=== PATIENT | female | born 1995 | race Two or more races ===

== ENCOUNTER 2022-05-25 10:50 | Observation (INO) | payer MEDICAID ==
[~2022-05-25] VITALS: Ht 154.9 cm; Wt 72.1 kg
[2022-05-25] MEDS ORDERED: TERBUTALINE SULFATE 1 MG/ML 1ML VIAL SC ONE (12:00)
== END 2022-05-25 13:10 | disposition home or self-care (01) ==
LOC: UNDOADMOB 10:50 → LDRP 10:50 → UNDODISOB 13:10
PROVIDERS: ADMIT Obstetrics & Gynecology; ATTEND Obstetrics & Gynecology
DX: O60.02 Preterm labor without delivery, second trimester (principal); Z3A.27 27 weeks gestation of pregnancy
CPT/HCPCS: 59025; 81002; 96372; G0378; J3105

== ENCOUNTER 2022-05-31 18:14 | Observation (INO) | payer MEDICAID ==
[~2022-05-31] VITALS: Ht 154.9 cm; Wt 72.1 kg
== END 2022-05-31 19:07 | disposition home or self-care (01) ==
LOC: LDRP 18:14
PROVIDERS: ADMIT Obstetrics & Gynecology; ATTEND Obstetrics & Gynecology
DX: O26.893 Other specified pregnancy related conditions, third trimester (principal); R10.9 Unspecified abdominal pain; Z3A.28 28 weeks gestation of pregnancy
CPT/HCPCS: 59025; 81002; G0378

== ENCOUNTER 2022-06-20 11:30 | Observation (INO) | payer MEDICAID ==
[~2022-06-20] VITALS: Ht 154.9 cm; Wt 76.7 kg
[2022-06-20 12:18] LABS: Basophils # (auto) 0.1 10 ^3/uL (0-0.2); Basophils % (auto) 0.6 % (0.0-2.0); Eosinophils # (auto) 0.2 10 ^3/uL (0-0.8); Eosinophils % (auto) 2.1 % (0.0-7.0); Hematocrit 34.3 % (36.0-46.0); Lymphocytes # (auto) 1.4 10 ^3/uL (0.4-5.4); Lymphocytes % (auto) 15.7 % (10.0-50.0); Mean Corpuscular Hemoglobin 27.7 pg (28.0-32.0); Mean Corpuscular Hgb Conc. 34.9 g/dL (32.0-36.0); Mean Corpuscular Volume 79.5 fL (80.0-100.0); Monocytes # (auto) 0.6 10 ^3/uL (0-1.3); Monocytes % (auto) 6.7 % (0.0-12.0); Neutrophils # (auto) 6.8 10 ^3/uL (1.6-8.6); Neutrophils % (auto) 74.9 % (37.0-80.0); Nucleated Red Blood Cells % 0.3 %; Red Blood Cells 4.31 10^6/uL (4.0-5.20); Red Cell Distribution Width 13.6 % (11.8-14.3); White Blood Cell 9.1 10^3/uL (4.4-10.8)
[2022-06-20 12:40] LABS: Urine Bacteria NONE SEEN /hpf (None Seen); Urine Blood Negative /uL (Negative); Urine Specific Gravity 1.015 (1.001-1.035); Urine WBC 5 /hpf (0 - 5)
[2022-06-20 12:42] LABS: Albumin 2.4 g/dL (3.4-5.0); Calcium 8.4 mg/dL (8.5-10.1); Potassium 3.8 mmol/L (3.5-5.1)
[2022-06-20 12:48] LABS: Bilirubin, Total 0.2 mg/dL (0.2-1.0); Total Protein 6.8 g/dL (6.4-8.2); Uric Acid 3.1 mg/dL (2.6-6.0)
[2022-06-20 12:57] LABS: Protein, Urine 18.3 mg/dL (0.0-11.9)
[2022-06-20 13:13] LABS: INR 0.87 (0.9-1.15); Partial Thromboplastin Time 26.2 sec (24.6-33.4)
[2022-06-20] MEDS ORDERED: NIF10C PO (13:42)
== END 2022-06-20 14:13 | disposition home or self-care (01) ==
LOC: UNDOADMOB 11:30 → LDRP 11:30 → UNDODISOB 14:13
PROVIDERS: ADMIT Obstetrics & Gynecology; ATTEND Obstetrics & Gynecology
DX: O13.3 Gestational [pregnancy-induced] hypertension without significant proteinuria, third trimester (principal); Z3A.31 31 weeks gestation of pregnancy
CPT/HCPCS: 59025; 80053; 81001; 81002; 82570; 84156; 84550; 85379; 85610; 85730; 94760; G0378

== ENCOUNTER 2022-06-22 13:31 | Observation (INO) | payer MEDICAID ==
[~2022-06-22 13:31] MED LIST: NIF10C PO
== END 2022-06-22 17:25 | disposition home or self-care (01) ==
LOC: UNDOADMOB 13:31 → LDRP 13:31
PROVIDERS: ADMIT Obstetrics & Gynecology; ATTEND Obstetrics & Gynecology
DX: O14.93 Unspecified pre-eclampsia, third trimester (principal); O26.893 Other specified pregnancy related conditions, third trimester; R51.9 Headache, unspecified; Z3A.31 31 weeks gestation of pregnancy
CPT/HCPCS: 59025; 76818; 81002; 94760; G0378

== ENCOUNTER 2022-06-27 09:42 | Observation (INO) | payer MEDICAID ==
[2022-06-27 13:11] LABS: Protein, Urine 13.2 mg/dL (0.0-11.9)
[2022-06-27 16:16] LABS: 24 Hr. Total Protein, Urine 277.2 mg/24 Hr (<149.1)
== END 2022-06-27 12:52 | disposition home or self-care (01) ==
LOC: UNDOADMOB 10:25 → LDRP 10:25
PROVIDERS: ADMIT Obstetrics & Gynecology; ATTEND Obstetrics & Gynecology
DX: O13.3 Gestational [pregnancy-induced] hypertension without significant proteinuria, third trimester (principal); O36.8330 Maternal care for abnormalities of the fetal heart rate or rhythm, third trimester, not applicable or unspecified; Z3A.32 32 weeks gestation of pregnancy
CPT/HCPCS: 59025; 76818; 81002; 84156; 94760; G0378

== ENCOUNTER 2022-06-29 21:30 | Observation (INO) | payer MEDICAID ==
[~2022-06-29] VITALS: Ht 154.9 cm; Wt 59.9 kg
[2022-06-29] MEDS ORDERED: TERBUTALINE SULFATE 1 MG/ML 1ML VIAL SC SCH (22:15)
[2022-06-29] MEDS ORDERED: BETAMETHASONE ACET (30mg/5ml) 5ml Vial 6mg/ml IM ONE (22:15)
[2022-06-30] MEDS ORDERED: PREN-96 PO (22:28)
[2022-06-30] MEDS ORDERED: NIF10C PO (22:49)
== END 2022-06-29 23:46 | disposition home or self-care (01) ==
LOC: LDRP 21:30
PROVIDERS: ADMIT Obstetrics & Gynecology; ATTEND Obstetrics & Gynecology
DX: O60.03 Preterm labor without delivery, third trimester (principal); Z3A.32 32 weeks gestation of pregnancy
CPT/HCPCS: 59025; 76817; 76818; 81002; 94760; 96372; G0378; J0702; J3105

== ENCOUNTER 2022-06-30 21:46 | Observation (INO) | payer MEDICAID ==
[~2022-06-30] VITALS: Ht 154.9 cm; Wt 72.6 kg
[2022-06-30] MEDS ORDERED: BETAMETHASONE ACET (30mg/5ml) 5ml Vial 6mg/ml IM ONE (22:15)
[2022-06-30] MEDS ORDERED: PREN-96 PO (22:28)
[2022-06-30] MEDS ORDERED: NIF10C PO (22:49)
[2022-06-30 23:13] LABS: Basophils # (auto) 0 10 ^3/uL (0-0.2); Basophils % (auto) 0.3 % (0.0-2.0); Eosinophils # (auto) 0 10 ^3/uL (0-0.8); Eosinophils % (auto) 0.1 % (0.0-7.0); Hematocrit 34.6 % (36.0-46.0); Hemoglobin 11.4 g/dL (12.2-16.2); Lymphocytes # (auto) 1.3 10 ^3/uL (0.4-5.4); Lymphocytes % (auto) 11.5 % (10.0-50.0); Mean Corpuscular Hemoglobin 27.3 pg (28.0-32.0); Mean Corpuscular Hgb Conc. 33.1 g/dL (32.0-36.0); Mean Corpuscular Volume 82.6 fL (80.0-100.0); Monocytes # (auto) 0.9 10 ^3/uL (0-1.3); Monocytes % (auto) 8.1 % (0.0-12.0); Nucleated Red Blood Cells % 0.1 %; Red Blood Cells 4.19 10^6/uL (4.0-5.20); Red Cell Distribution Width 13.8 % (11.8-14.3); White Blood Cell 11.2 10^3/uL (4.4-10.8)
[2022-06-30 23:19] LABS: Urine Bacteria FEW /hpf (None Seen); Urine Blood Negative /uL (Negative); Urine Specific Gravity 1.008 (1.001-1.035); Urine WBC 1 /hpf (0 - 5)
[2022-06-30 23:29] LABS: Albumin 2.4 g/dL (3.4-5.0); Calcium 8.6 mg/dL (8.5-10.1); Potassium 3.8 mmol/L (3.5-5.1)
[2022-06-30 23:30] LABS: INR 0.88 (0.9-1.15); Partial Thromboplastin Time 25.1 sec (24.6-33.4)
[2022-06-30 23:32] LABS: Protein, Urine 22.5 mg/dL (0.0-11.9)
[2022-06-30 23:34] LABS: BUN/Creatinine Ratio 17.8 (10.0-20.0); Bilirubin, Total 0.1 mg/dL (0.2-1.0); Total Protein 6.7 g/dL (6.4-8.2)
== END 2022-07-01 00:03 | disposition home or self-care (01) ==
LOC: LDRP 21:46
PROVIDERS: ADMIT Obstetrics & Gynecology; ATTEND Obstetrics & Gynecology
DX: O60.03 Preterm labor without delivery, third trimester (principal); Z3A.32 32 weeks gestation of pregnancy; Z79.899 Other long term (current) drug therapy
CPT/HCPCS: 36415; 59025; 80053; 81001; 81002; 82570; 84156; 84550; 85025; 85610; 85730; 94760; 96372; G0378

== ENCOUNTER 2022-07-02 09:07 | Observation (INO) | payer MEDICAID ==
[~2022-07-02 09:07] MED LIST changes: +PREN-96 PO
== END 2022-07-02 11:48 | disposition home or self-care (01) ==
LOC: LDRP 09:07
PROVIDERS: ADMIT Obstetrics & Gynecology; ATTEND Obstetrics & Gynecology
DX: O60.03 Preterm labor without delivery, third trimester (principal); O13.3 Gestational [pregnancy-induced] hypertension without significant proteinuria, third trimester; Z3A.32 32 weeks gestation of pregnancy; Z87.891 Personal history of nicotine dependence
CPT/HCPCS: 59025; 76818; 81002; 94760; G0378

== ENCOUNTER 2022-07-05 08:17 | Observation (INO) | payer MEDICAID ==
[2022-07-05] MEDS ORDERED: ACETAMINOPHEN 325 MG TAB PO STA (15:14)
[2022-07-05 16:52] LABS: Basophils # (auto) 0 10 ^3/uL (0-0.2); Basophils % (auto) 0.2 % (0.0-2.0); Eosinophils # (auto) 0.1 10 ^3/uL (0-0.8); Hematocrit 37.4 % (36.0-46.0); Hemoglobin 12.2 g/dL (12.2-16.2); Lymphocytes # (auto) 1.8 10 ^3/uL (0.4-5.4); Lymphocytes % (auto) 16.9 % (10.0-50.0); Mean Corpuscular Hemoglobin 27.3 pg (28.0-32.0); Mean Corpuscular Hgb Conc. 32.7 g/dL (32.0-36.0); Mean Corpuscular Volume 83.5 fL (80.0-100.0); Monocytes # (auto) 0.7 10 ^3/uL (0-1.3); Neutrophils % (auto) 74.9 % (37.0-80.0); Nucleated Red Blood Cells % 0.3 %; Red Blood Cells 4.48 10^6/uL (4.0-5.20); Red Cell Distribution Width 13.9 % (11.8-14.3); White Blood Cell 10.6 10^3/uL (4.4-10.8)
[2022-07-05 16:59] LABS: Urine Bacteria FEW /hpf (None Seen); Urine Blood Negative /uL (Negative); Urine Hyaline Cast FEW /lpf (0 - 2); Urine Specific Gravity 1.004 (1.001-1.035); Urine WBC <1 /hpf (0 - 5)
[2022-07-05 17:11] LABS: INR 0.86 (0.9-1.15); Partial Thromboplastin Time 25.9 sec (24.6-33.4)
[2022-07-05 17:22] LABS: Albumin 2.3 g/dL (3.4-5.0); Calcium 9.2 mg/dL (8.5-10.1); Potassium 3.8 mmol/L (3.5-5.1)
[2022-07-05 17:23] LABS: Protein, Urine 7.6 mg/dL (0.0-11.9)
[2022-07-05 17:27] LABS: Bilirubin, Total 0.1 mg/dL (0.2-1.0); Total Protein 6.7 g/dL (6.4-8.2)
[2022-07-05] MEDS ORDERED: LABE200T6 PO (18:02)
== END 2022-07-05 18:34 | disposition home or self-care (01) ==
LOC: LDRP 13:14 → UNDOADMOB 13:14 → LDRP 13:53
PROVIDERS: ADMIT Obstetrics & Gynecology; ATTEND Obstetrics & Gynecology
DX: O14.93 Unspecified pre-eclampsia, third trimester (principal); O60.03 Preterm labor without delivery, third trimester; O13.3 Gestational [pregnancy-induced] hypertension without significant proteinuria, third trimester; O26.893 Other specified pregnancy related conditions, third trimester; R51.9 Headache, unspecified; Z87.891 Personal history of nicotine dependence
CPT/HCPCS: 36415; 59025; 76818; 80053; 81001; 81002; 82570; 84156; 84550; 85025; 85379; 85610; 85730; G0378

== ENCOUNTER 2022-07-07 08:45 | Observation (INO) | payer MEDICAID ==
[~2022-07-07 08:45] MED LIST changes: +LABE200T6 PO; -NIF10C PO
== END 2022-07-07 10:43 | disposition home or self-care (01) ==
LOC: UNDOADMOB 08:45 → LDRP 08:45
PROVIDERS: ADMIT Obstetrics & Gynecology; ATTEND Obstetrics & Gynecology
DX: O13.3 Gestational [pregnancy-induced] hypertension without significant proteinuria, third trimester (principal); O60.03 Preterm labor without delivery, third trimester; Z3A.33 33 weeks gestation of pregnancy
CPT/HCPCS: 59025; 76817; 81002; 94760; G0378

== ENCOUNTER 2022-07-08 08:18 | Observation (INO) | payer MEDICAID ==
[2022-07-11 09:38] LABS: Urine Bacteria NONE SEEN /hpf (None Seen); Urine Blood Negative /uL (Negative); Urine Specific Gravity 1.001 (1.001-1.035); Urine WBC <1 /hpf (0 - 5)
[2022-07-11 12:44] LABS: Protein, Urine < 5 mg/dL (0.0-11.9)
[2022-07-11 13:27] LABS: 24 Hr. Total Protein, Urine 259.99948 mg/24 Hr (<149.1); Urine Total Volume, 24 Hours 5200 mL
[2022-07-19] MEDS ORDERED: LABE300T3 PO (17:07)
== END 2022-07-11 10:40 | disposition home or self-care (01) ==
LOC: LDRP 07-11 09:04 → UNDOADMOB 07-11 09:04 → LDRP 07-11 09:05 → UNDODISOB 07-11 10:40
PROVIDERS: ADMIT Obstetrics & Gynecology; ATTEND Obstetrics & Gynecology
DX: O13.3 Gestational [pregnancy-induced] hypertension without significant proteinuria, third trimester (principal); O60.03 Preterm labor without delivery, third trimester; O62.9 Abnormality of forces of labor, unspecified; Z3A.33 33 weeks gestation of pregnancy
CPT/HCPCS: 59025; 76817; 76818; 81001; 81002; 84156; 94760; G0378

== ENCOUNTER 2022-07-08 17:51 | Observation (INO) | payer MEDICAID | END 2022-07-08 22:56 | disposition home or self-care (01) | LOC: LDRP 17:51 | PROVIDERS: ADMIT Obstetrics & Gynecology; ATTEND Obstetrics & Gynecology | DX: O13.3 Gestational [pregnancy-induced] hypertension without significant proteinuria, third trimester (principal); O62.9 Abnormality of forces of labor, unspecified; Z3A.33 33 weeks gestation of pregnancy | CPT/HCPCS: 59025; 76818; 81002; G0378 ==

== ENCOUNTER 2022-07-18 08:37 | Observation (INO) | payer MEDICAID ==
[~2022-07-18] VITALS: Ht 154.9 cm; Wt 79.4 kg
[2022-07-18] MEDS ORDERED: BETAMETHASONE ACET (30mg/5ml) 5ml Vial 6mg/ml IM ONE (16:45)
[2022-07-18] MEDS ORDERED: LABETALOL HCL 200 MG TAB ONE (16:55)
[2022-07-18] MEDS: hydrALAZINE HCL 20 MG/ML VL IV PRN ×2 (16:55→17:25)
[2022-07-18] MEDS ORDERED: LABETALOL HCL 200 MG TAB PO ONE (16:55)
[2022-07-18 17:55] LABS: Urine Bacteria NONE SEEN /hpf (None Seen); Urine Blood Negative /uL (Negative); Urine Specific Gravity 1.016 (1.001-1.035); Urine WBC 6 /hpf (0 - 5)
[2022-07-18 17:58] LABS: Basophils # (auto) 0 10 ^3/uL (0-0.2); Basophils % (auto) 0.4 % (0.0-2.0); Eosinophils # (auto) 0.1 10 ^3/uL (0-0.8); Eosinophils % (auto) 0.8 % (0.0-7.0); Hematocrit 36.7 % (36.0-46.0); Hemoglobin 12.1 g/dL (12.2-16.2); Lymphocytes # (auto) 1.7 10 ^3/uL (0.4-5.4); Lymphocytes % (auto) 19.4 % (10.0-50.0); Mean Corpuscular Hemoglobin 27.5 pg (28.0-32.0); Mean Corpuscular Volume 83.4 fL (80.0-100.0); Monocytes # (auto) 0.5 10 ^3/uL (0-1.3); Monocytes % (auto) 5.9 % (0.0-12.0); Neutrophils # (auto) 6.4 10 ^3/uL (1.6-8.6); Neutrophils % (auto) 73.5 % (37.0-80.0); Nucleated Red Blood Cells % 0.1 %; Red Cell Distribution Width 14.8 % (11.8-14.3); White Blood Cell 8.6 10^3/uL (4.4-10.8)
[2022-07-18 18:11] LABS: Albumin 2.4 g/dL (3.4-5.0); Potassium 3.7 mmol/L (3.5-5.1)
[2022-07-18 18:16] LABS: Alcohol, Urine < 3.0 mg/dL (0-10); Amphetamine Screen, Urine NEGATIVE (NEGATIVE); Barbiturate Scree,Urine NEGATIVE (NEGATIVE); Benzodiazephine Screen, Urine NEGATIVE (NEGATIVE); Cannabinoid Screen, Urine NEGATIVE (NEGATIVE); Cocaine Screen, Urine NEGATIVE (NEGATIVE); Creatinine, Urine 53 mg/dL (30.0-125.0); Opiate Scree,Urine NEGATIVE (NEGATIVE); Phencyclidine Screen, Urine NEGATIVE (NEGATIVE); Protein, Urine 24.7 mg/dL (0.0-11.9)
[2022-07-18 18:16] LABS: BUN/Creatinine Ratio 19.6 (10.0-20.0); Bilirubin, Total 0.2 mg/dL (0.2-1.0); Total Protein 6.9 g/dL (6.4-8.2); Uric Acid 3.8 mg/dL (2.6-6.0)
[2022-07-18 18:32] LABS: INR 0.85 (0.9-1.15); Partial Thromboplastin Time 25.9 sec (24.6-33.4)
[2022-07-19] MEDS ORDERED: LABE300T3 PO ×2 (17:07)
== END 2022-07-18 21:30 | disposition home or self-care (01) ==
LOC: UNDOADMOB 15:25 → LDRP 15:25
PROVIDERS: ADMIT Obstetrics & Gynecology; ATTEND Obstetrics & Gynecology
DX: O13.3 Gestational [pregnancy-induced] hypertension without significant proteinuria, third trimester (principal); O60.03 Preterm labor without delivery, third trimester; Z3A.35 35 weeks gestation of pregnancy; Z79.899 Other long term (current) drug therapy
CPT/HCPCS: 36415; 59025; 76818; 80053; 80307; 81001; 81002; 82570; 84156; 84550; 85025; 85610; 85730; 94760; 96372; 96374; G0378; J0360; J0702; 96360; 96361; 96375

== ENCOUNTER 2022-07-19 16:46 | Observation (INO) | payer MEDICAID ==
[~2022-07-19] VITALS: Ht 152.4 cm; Wt 78.9 kg
[2022-07-19] MEDS ORDERED: BETAMETHASONE ACET (30mg/5ml) 5ml Vial 6mg/ml IM ONE (17:00)
[2022-07-19] MEDS ORDERED: LABE300T3 PO ×2 (17:07)
== END 2022-07-19 18:41 | disposition home or self-care (01) ==
LOC: UNDOADMOB 16:46 → LDRP 16:46
PROVIDERS: ADMIT Obstetrics & Gynecology; ATTEND Obstetrics & Gynecology
DX: O13.3 Gestational [pregnancy-induced] hypertension without significant proteinuria, third trimester (principal); Z3A.35 35 weeks gestation of pregnancy
CPT/HCPCS: 59025; 81002; 94760; G0378

== ENCOUNTER 2022-07-22 09:10 | Inpatient (IN) | payer MEDICAID ==
[~2022-07-22] VITALS: Ht 154.9 cm; Wt 81.6 kg
[~2022-07-22 09:10] MED LIST changes: -LABE200T6 PO; +LABE300T3 PO
[2022-07-22] MEDS ORDERED: MAGNESIUM SULFATE 100 ML IV ONE (14:30)
[2022-07-22] MEDS ORDERED: MAGNESIUM SULFATE 40MG/ML 1,000 ML IV SCH (14:30)
[2022-07-22] MEDS ORDERED: LORazepam 2MG/ML-1ML VIAL IV ONE (14:30)
[2022-07-22] MEDS ORDERED: hydrALAZINE HCL 20 MG/ML VL IV PRN (14:30)
[2022-07-22 14:42] LABS: Basophils # (auto) 0 10 ^3/uL (0-0.2); Basophils % (auto) 0.3 % (0.0-2.0); Eosinophils # (auto) 0 10 ^3/uL (0-0.8); Eosinophils % (auto) 0.4 % (0.0-7.0); Hematocrit 37.1 % (36.0-46.0); Hemoglobin 12.2 g/dL (12.2-16.2); Lymphocytes # (auto) 1.5 10 ^3/uL (0.4-5.4); Mean Corpuscular Hemoglobin 27.7 pg (28.0-32.0); Mean Corpuscular Hgb Conc. 32.8 g/dL (32.0-36.0); Mean Corpuscular Volume 84.3 fL (80.0-100.0); Monocytes # (auto) 0.8 10 ^3/uL (0-1.3); Neutrophils % (auto) 74.3 % (37.0-80.0); Red Cell Distribution Width 14.8 % (11.8-14.3); White Blood Cell 9.4 10^3/uL (4.4-10.8)
[2022-07-22 14:49] LABS: Urine Bacteria MANY /hpf (None Seen); Urine Blood Negative /uL (Negative); Urine Mucus FEW (None Seen); Urine Specific Gravity 1.022 (1.001-1.035); Urine WBC 23 /hpf (0 - 5)
[2022-07-22 14:59] LABS: INR 0.83 (0.9-1.15)
[2022-07-22 15:26] LABS: Albumin 2.5 g/dL (3.4-5.0); Calcium 9.1 mg/dL (8.5-10.1); Potassium 3.9 mmol/L (3.5-5.1)
[2022-07-22 15:31] LABS: BUN/Creatinine Ratio 24.4 (10.0-20.0); Bilirubin, Total 0.2 mg/dL (0.2-1.0); Total Protein 6.6 g/dL (6.4-8.2); Uric Acid 3.9 mg/dL (2.6-6.0)
[2022-07-22 15:42] LABS: Protein, Urine 47.4 mg/dL (0.0-11.9)
[2022-07-22 16:26] LABS: Opiate Scree,Urine NEGATIVE (NEGATIVE)
[2022-07-22 16:27] LABS: Amphetamine Screen, Urine NEGATIVE (NEGATIVE); Barbiturate Scree,Urine NEGATIVE (NEGATIVE); Benzodiazephine Screen, Urine NEGATIVE (NEGATIVE); Cannabinoid Screen, Urine NEGATIVE (NEGATIVE); Cocaine Screen, Urine NEGATIVE (NEGATIVE); Phencyclidine Screen, Urine NEGATIVE (NEGATIVE)
== END 2022-07-22 16:30 | disposition home or self-care (01) | DRG 566 ==
LOC: LDRP 13:09 → UNDOADMOB 13:09 → LDRP 13:12 → OBSVTOIN 14:30 → UNDODISIN 16:30
PROVIDERS: ADMIT Obstetrics & Gynecology; ATTEND Obstetrics & Gynecology
DX: O14.13 Severe pre-eclampsia, third trimester (principal); Z3A.35 35 weeks gestation of pregnancy; O13.3 Gestational [pregnancy-induced] hypertension without significant proteinuria, third trimester
CPT/HCPCS: 36415; 59025; 80053; 80307; 81001; 81002; 82570; 83735; 84156; 84550; 85025; 85610; 85730; 94760; 96360; 96361; 96365; 96366; 96374; G0378